=== PATIENT | male | born 1950 | race Caucasian/White ===

== ENCOUNTER 2020-11-05 08:00 | Day surgery (SDC) | payer MEDICARE ==
[2020-11-02 12:48] LABS: ALANINE AMINOTRANSFERASE 32 U/L (12-78); ALBUMIN 3.9 g/dL (3.4-5.0); ANION GAP 5 mmol/L (5-15); CALCIUM 8.6 mg/dL (8.5-10.1); CHLORIDE 109 mmol/L (98-107); CREATININE 0.97 mg/dL (0.7-1.3)
[2020-11-02 12:50] LABS: ALKALINE PHOSPHATASE 100 U/L (45-117); BILIRUBIN,TOTAL 0.5 mg/dL (0.2-1.0)
[~2020-11-05] VITALS: Ht 195.6 cm; Wt 89.8 kg
[~2020-11-05 08:00] MED LIST: BENA10TA59 PO; MELO15TA24 PO; METF-754 PO; TAMS-11 PO; TRAM50TA2 PO
[2020-11-05 08:41] VITALS: BP 142/84
[2020-11-05] MEDS ORDERED: ACET-1600 PO (08:45)
[2020-11-05] MEDS ORDERED: CHLORHEXIDINE 15 ML UDC MM ONE (09:00)
[2020-11-05] MEDS ORDERED: LACTATED RINGERS 1,000 ML IV SCH (09:00)
[2020-11-05] MEDS ORDERED: EPINEPHRINE 1 MG/ML, 1ML ONE (10:04)
[2020-11-05] MEDS ORDERED: BUPIVACAINE/PF 0.5% ONE (10:04)
[2020-11-05] MEDS ORDERED: MIDAZOLAM 1 MG/ML, 2ML ONE (10:15)
[2020-11-05] MEDS ORDERED: FENTANYL PF 100 MCG/2ML ONE ×4 (10:15→12:13)
[2020-11-05] MEDS ORDERED: DEXAMETHASONE 4 MG/ML, 1ML ONE (10:28)
[2020-11-05] MEDS ORDERED: EPHEDRINE 50 MG/ML, 1ML ONE (10:28)
[2020-11-05] MEDS ORDERED: CEFAZOLIN 1,000 MG ONE (10:28)
[2020-11-05] MEDS ORDERED: ROCURONIUM 10 MG/ML,10ML ONE (10:28)
[2020-11-05] MEDS ORDERED: GLYCOPYRROLATE 0.2MG/1ML, 5ML ONE (10:28)
[2020-11-05] MEDS ORDERED: ONDANSETRON 2MG/ML, 2ML ONE (10:28)
[2020-11-05] MEDS ORDERED: PROPOFOL 10 MG/ML, 20ML ONE (10:28)
[2020-11-05] MEDS ORDERED: hydrALAzine 20 MG/ML, 1ML ONE (10:28)
[2020-11-05] MEDS ORDERED: SUGAMMADEX 200 MG/2 ML IVPush ONE (10:28)
[2020-11-05] MEDS ORDERED: PHENYLEPHRINE 10 MG/ML ONE (10:28)
[2020-11-05] MEDS ORDERED: hydrALAzine 20 MG/ML, 1ML IV PRN (12:00)
[2020-11-05] MEDS ORDERED: METHOCARBAMOL 1,000 MG in DEXTROSE 5% 100 ML IV PRN (12:00)
[2020-11-05] MEDS ORDERED: HALOPERIDOL 5 MG/ML IV PRN (12:00)
[2020-11-05] MEDS ORDERED: KETOROLAC 30 MG/1 ML IVPush PRN ×2 (12:00→12:30)
[2020-11-05] MEDS ORDERED: ONDANSETRON 2MG/ML, 2ML IVPush PRN ×2 (12:00→12:30)
[2020-11-05] MEDS ORDERED: LABETALOL 5MG/ML, 20ML IV PRN (12:00)
[2020-11-05] MEDS ORDERED: METOPROLOL 1 MG/ML, 5ML IV PRN (12:00)
[2020-11-05] MEDS ORDERED: DIPHENHYDRAMINE 50 MG/ML, 1ML IVPush PRN (12:00)
[2020-11-05] MEDS ORDERED: PROMETHAZINE 25 MG/ML, 1ML IVPush PRN (12:00)
[2020-11-05] MEDS ORDERED: ACETAMINOPHEN 325 MG TABLET PO PRN (12:00)
[2020-11-05] MEDS ORDERED: METOCLOPRAMIDE 5 MG/ML, 2ML IVPush PRN (12:00)
[2020-11-05] MEDS ORDERED: OXYcodone 5 MG/5 ML ORAL.SOL UDC PO PRN (12:00)
[2020-11-05] MEDS ORDERED: OXYcodone 5 MG/5 ML ORAL.SOL UDC ONE (12:13)
[2020-11-05] MEDS ORDERED: ACETAMINOPHEN 650 MG/20.3 ML UDC ONE (12:13)
[2020-11-05] MEDS: FENTANYL PF 100 MCG/2ML IV PRN ×2 (12:15→12:25)
[2020-11-05] MEDS ORDERED: HYDROmorphone 1 MG/ML, 1ML INJ ONE (12:22)
[2020-11-05] MEDS ORDERED: KETOROLAC 30 MG/1 ML ONE (12:29)
[2020-11-05] MEDS ORDERED: OXYcodone IR 5MG TABLET PO PRN (12:30)
[2020-11-05] MEDS: HYDROmorphone 1 MG/ML, 1ML INJ IVPush PRN ×2 (12:30→12:50)
[2020-11-05] MEDS ORDERED: morphine SULFATE 10 MG/ML, 1ML IVPush PRN (12:30)
[2020-11-05] MEDS ORDERED: OXYC5TAB2 PO (12:43)
== END 2020-11-05 16:30 | disposition home or self-care (01) ==
LOC: OUT 08:00
PROVIDERS: ATTEND Surgery
DX: K43.2 Incisional hernia without obstruction or gangrene (principal); I10 Essential (primary) hypertension; E11.9 Type 2 diabetes mellitus without complications; Z98.890 Other specified postprocedural states; Z87.891 Personal history of nicotine dependence; Z79.899 Other long term (current) drug therapy; Z20.822 Contact with and (suspected) exposure to COVID-19; Z82.49 Family history of ischemic heart disease and other diseases of the circulatory system; Z83.3 Family history of diabetes mellitus
CPT/HCPCS: 15734; 36415; 49565; 49568; 80053; 82962; 93005; C1781; J0171; J0360; J0690; J1100; J1170; J1885; J2250; J2370; J2405; J2704; J2800; J3010; J7120; U0003